=== PATIENT | male | born 2000 | race Caucasian/White ===

== ENCOUNTER 2024-05-20 11:05 | Emergency (ER) | payer OTHER, SELFPAY ==
[2024-05-20 11:21] VITALS: BP 132/95; PULSE 104; RESP 16; TEMP 37.4; O2SAT 99
--- NOTE | 2024-05-20 13:02 | ED.GENADULT ---
HPI - General Adult General Chief complaint: Upper Respiratory Infection Stated complaint: sore throat Source: patient Mode of arrival: ambulatory Limitations: no limitations History of Present Illness HPI narrative: Patient presents for evaluation of sick symptoms. Six days ago he developed a scratchy throat . He then developed a sore throat which has persisted since that time. He reports right-sided cervical lymphadenopathy and right sided facial and neck swelling. He also has right-sided ear pain at the present time. He has felt nauseated and has had some vomiting. He reports hot flashes and chills. He used some throat lozenges and also took mucinex without considerable improvement thereafter. He has a mild cough. He went to over the weekend and had a negative strep test and was told to take OTC agents. He is not sexually active. Related Data Allergies Allergy/AdvReac Type Severity Reaction Status Date / Time No Known Allergies Allergy Verified 05/20/24 11:44 Review of Systems Review of Systems: CONSTITUTIONAL: Reports fever and chills. EYES: Denies visual changes, redness, or discharge. ENT: Reports scratchy and sore throat. Reports right-sided otalgia and right sided facial swelling CARDIOVASCULAR: Denies chest pain, palpitations, or edema. RESPIRATORY: Reports occasional mild cough GASTROINTESTINAL: Reports nausea and vomiting. Denies diarrhea. GENITOURINARY: Denies dysuria or hematuria. SKIN: Denies rash or itching. MUSCULOSKELETAL: Denies back pain, joint pain, or myalgia. NEUROLOGIC: Denies headache, numbness, dizziness, or weakness. PSYCHIATRIC: Denies anxiety or depression. PMFSH Past Medical History Medical History No pertinent past medical history Surgical History Surgical History No pertinent past surgical history Family History Family History Mother Family history non-contributory Social History Social History Smoking status: Never smoker Substance use: never Spiritual care concerns: No Exam Narrative: GENERAL: Well-appearing, well-nourished, and in no acute distress. HEAD: Normocephalic, atraumatic. EYES: PERRLA and EOMI. ENT: Nares clear, no rhinorrhea or epistaxis. Mucous membranes moist. there is posterior pharyngeal erythema without exudate. Uvula is midline. Trace right-sided swelling, along the mandible. Bilateral TMs pearly luis nonbulging NECK: Supple. There is bilateral cervical lymphadenopathy. No carotid bruits or JVD CHEST: Clear to auscultation. No respiratory distress. No wheezes rales or rhonchi HEART: Regular rate and rhythm. No murmur heard. Normal peripheral pulses. ABDOMEN: Soft, nontender, nondistended, normal active bowel sounds. EXTREMITIES: Normal range of motion. No edema. SKIN: Warm, dry, no rash. NEURO: No focal deficits. Alert and oriented x3. PSYCH: Normal mood and affect. Course Course Emergency Course: this is a 24-year-old male who presented for evaluation of sick symptoms. Strep and mono were negative. Symptoms have persisted for approximately a week. He has no visible dental abscess. At this point I think you would benefit from Augmentin. Ibuprofen for pain and swelling. Follow-up with primary provider. Go to the ER for worsening symptoms. Patient in agreement with plan of care. Level of Care: Express Care Visit Vital Signs Vital signs: Vital Signs Temperature 37.4 C 05/20/24 11:21 Pulse Rate 104 H 05/20/24 11:21 Respiratory Rate 16 05/20/24 11:21 Blood Pressure 132/95 H 05/20/24 11:21 Pulse Oximetry 99 05/20/24 11:21 Temperature 37.4 C 05/20/24 11:21 Pulse Rate 104 H 05/20/24 11:21 Respiratory Rate 16 05/20/24 11:21 Blood Pressure 132/95
== END 2024-05-20 11:51 | disposition home or self-care (01) ==
PROVIDERS: Emergency Provider Nurse Practitioner
DX: J02.9 Acute pharyngitis, unspecified (principal); K08.89 Other specified disorders of teeth and supporting structures; R22.0 Localized swelling, mass and lump, head
CPT/HCPCS: 36416; 86308; 87081; 87880; 99213; G0463